=== PATIENT | female | born 1995 | race Caucasian/White ===

== ENCOUNTER 2017-07-28 19:51 | Inpatient (IN) | payer MEDICAID ==
[~2017-07-28] VITALS: Ht 160 cm; Wt 56.3 kg
[2017-07-28] MEDS ORDERED: HALOPERIDOL LACTATE 5 MG/ML VIAL IM ONE (20:15)
[2017-07-28] MEDS ORDERED: LORazepam 2 MG/ML VIAL IM ONE (20:15)
[2017-07-28] MEDS ORDERED: DiphenhydrAMINE HCL 50 MG/ML VIAL IM ONE (20:15)
[2017-07-28 20:32] LABS: BASOPHILS % (AUTO) 0.8 % (0.0-2.0); EOSINOPHILS % (AUTO) 0.1 % (1.0-6.0); HEMATOCRIT 42.8 % (36-46); HEMOGLOBIN 14.7 g/dL (12.0-16.0); LYMPHOCYTES # (AUTO) 1.5 K/uL (1.0-4.8); LYMPHOCYTES % (AUTO) 24.7 % (22.0-44.0); MEAN CORPUSCULAR HEMOGLOBIN 28.7 pg (26.0-34.0); MEAN CORPUSCULAR HGB CONC 34.3 G/dL (31.0-37.0); MEAN CORPUSCULAR VOLUME 84 fL (80-100); MONOCYTES # (AUTO) 0.6 K/uL (0.1-1.0); MONOCYTES % (AUTO) 9.3 % (2.0-9.0); NEUTROPHILS # (AUTO) 3.9 K/uL (1.8-7.7); NEUTROPHILS % (AUTO) 65.1 % (40.0-70.0); PLATELET COUNT (AUTO) 171 K/uL (150-450); RED BLOOD CELL COUNT(AUTO) 5.12 MIL/uL (4.00-5.20); RED CELL DISTRIBUTION WIDTH 13.6 % (11.5-14.5)
[2017-07-28 21:02] LABS: ANION GAP 15 mmol/L (8-16); CALCIUM, TOTAL 9.3 mg/dL (8.8-10.5); CARBON DIOXIDE 22 mmol/L (22-29); CHLORIDE 101 mmol/L (98-107); CREATININE 0.72 mg/dL (0.60-1.30); GLOMERULAR FILTR. RATE CALC > 60 mL/min (>60); GLUCOSE,RANDOM 114 mg/dL (70-110); POTASSIUM 3.6 mmol/L (3.5-5.1); SODIUM SERUM 138 mmol/L (136-145); UREA NITROGEN, BLOOD 10 mg/dL (7-18)
[2017-07-28 21:11] LABS: ALANINE AMINOTRANSFERASE 23 U/L (12-78); ALBUMIN 4.3 g/dL (3.4-5.0); ALKALINE PHOSPHATASE 54 U/L (46-116); ASPARTATE AMINOTRANSFERASE 41 U/L (15-37); BILIRUBIN,TOTAL 0.6 mg/dL (0.1-1.0); TOTAL PROTEIN, SERUM 8.1 g/dL (6.4-8.2)
[2017-07-29 00:24] VITALS: BP 128/72
[2017-07-29 07:31] LABS: CHOL/HDL RATIO 2.2 (3.9-5.7)
[2017-07-29 09:42] VITALS: BP 130/76
[2017-07-29] MEDS: RisperiDONE 0.5 MG TABLET PO SCH (18:24)
[2017-07-30 08:05] VITALS: BP 120/72
[2017-07-30] MEDS: RisperiDONE 0.5 MG TABLET PO SCH ×2 (08:53→16:08)
[2017-07-30] MEDS: LORazepam 2 MG TABLET PO PRN ×2 (09:37→16:06)
[2017-07-30] MEDS: HALOPERIDOL 5 MG TABLET PO PRN (16:06)
[2017-07-30 16:41] VITALS: BP 129/77
[2017-07-30 19:25] LABS: APPEARANCE,URINE CLOUDY (CLEAR); BILIRUBIN,URINE NEGATIVE (NEGATIVE); GLUCOSE, URINE (UA) NEGATIVE (NEGATIVE); KETONES,URINE 40 mg/dL (NEGATIVE); LEUKOCYTE ESTERASE ,URINE MODERATE (NEGATIVE); NITRATE,URINE NEGATIVE (NEGATIVE); OCCULT BLOOD,URINE LARGE (NEGATIVE); PH,URINE 5.5 (5.0-8.0); PROTEIN,URINE NEGATIVE (NEGATIVE); UROBILINOGEN,URINE 0.2 mg/dL (<=1.0)
[2017-07-30 19:28] LABS: AMPHET/METH SCREEN,URINE NEGATIVE (NEGATIVE); BARBITURATE SCREEN, URINE NEGATIVE (NEGATIVE); BENZODIAZEPINES SCREEN,URINE NEGATIVE (NEGATIVE); CANNABINOID SCREEN,URINE NEGATIVE (NEGATIVE); COCAINE SCREEN,URINE NEGATIVE (NEGATIVE); METHADONE SCREEN, URINE NEGATIVE (NEGATIVE); OPIATE SCREEN,URINE NEGATIVE (NEGATIVE); PHENCYCLIDINE SCREEN,URINE NEGATIVE (NEGATIVE)
[2017-07-30 20:18] LABS: AMORPHOUS SEDIMENT,UR Moderate /LPF (None Seen); BACTERIA,URINE Moderate /HPF (None Seen); SQUAMOUS EPITHELIAL CELL,UR Many /LPF (None Seen)
[2017-07-31 08:05] VITALS: BP 122/68
[2017-07-31] MEDS: CIPROFLOXACIN HCL 250 MG TABLET PO SCH ×2 (09:02→16:52)
[2017-07-31] MEDS: RisperiDONE 0.5 MG TABLET PO SCH ×2 (09:03→16:51)
[2017-07-31] MEDS: LORazepam 2 MG TABLET PO PRN ×2 (11:03→16:52)
[2017-07-31 17:00] VITALS: BP 122/61
[2017-07-31] MEDS: ZOLPIDEM TARTRATE 10 MG TABLET PO PRN (22:40)
[2017-08-01 08:05] VITALS: BP 120/71
[2017-08-01] MEDS: CIPROFLOXACIN HCL 250 MG TABLET PO SCH ×2 (08:48→16:20)
[2017-08-01] MEDS: RisperiDONE 0.5 MG TABLET PO SCH ×2 (08:50→16:20)
[2017-08-01 17:00] VITALS: BP 115/80
[2017-08-01] MEDS: LORazepam 2 MG TABLET PO PRN (17:47)
[2017-08-01] MEDS: HALOPERIDOL 5 MG TABLET PO PRN (17:47)
[2017-08-01] MEDS: ZOLPIDEM TARTRATE 10 MG TABLET PO PRN (20:32)
[2017-08-02] MEDS: RisperiDONE 0.5 MG TABLET PO SCH (08:17)
[2017-08-02] MEDS: CIPROFLOXACIN HCL 250 MG TABLET PO SCH (08:17)
[2017-08-02 09:10] VITALS: BP 116/76
[2017-08-02] MEDS ORDERED: RISP0.5T61 PO (17:49)
[2017-08-02] MEDS ORDERED: CIP250 PO (17:49)
== END 2017-08-02 17:10 | disposition home or self-care (01) | DRG 751 ==
LOC: EMS 19:55 → 3EI 22:36
PROVIDERS: ADMIT Psychiatry & Neurology Psychiatry; ATTEND Psychiatry & Neurology Psychiatry
DX: F29 Unspecified psychosis not due to a substance or known physiological condition (principal); F22 Delusional disorders; D64.9 Anemia, unspecified; F12.90 Cannabis use, unspecified, uncomplicated; F15.90 Other stimulant use, unspecified, uncomplicated; Z71.51 Drug abuse counseling and surveillance of drug abuser; Z83.3 Family history of diabetes mellitus; Z83.2 Family history of diseases of the blood and blood-forming organs and certain disorders involving the immune mechanism
CPT/HCPCS: 87086; 96372; 99285; G0480; J1200; J1630; J2060